=== PATIENT | male | born 1995 | race Two or more races ===

== ENCOUNTER 2016-05-03 15:37 | Emergency (ER) | payer OTHER ==
[~2016-05-03] VITALS: Ht 177.8 cm; Wt 65.8 kg
[2016-05-03 18:17] VITALS: BP 145/56
[2016-05-03] MEDS ORDERED: TETRACAINE 0.5% OPHTH SOLUTION 4ML BOTTLE. OS ONE (19:00)
[2016-05-03] MEDS ORDERED: OFLO5DRO OS (19:45)
--- NOTE | 2016-05-03 19:46 | PHYS DOC ---
Past Medical History Past Medical History: Cancer, Other Additional Past Medical Histor: testicular Past Surgical History: Cancer Surgery Additional Information: Nonsmoker Alcohol Use: None Drug Use: None Adult General Chief Complaint Chief Complaint: EYE PROBLEMS HPI HPI Patient is a 20 year old male who presents with left eye irritation after chemical exposure at work at 1530 today. Patient was using Sodraft clean assist #106 cream clean product when it splashed into his left eye. He reports dry eye with mildly blurred vision in the left eye. He denies any drainage from the eye. He contacted poison control and was told to rinse I go to the hospital. He irrigated the eye for approximately 10 minutes at work. He is supposed to wear corrective lenses but does not wear them. He sees a PCP at [facility]. Review of Systems Review of Systems Constitutional: Denies fever or chills. [] Eyes: Denies redness or drainage. Reports left eye pain with blurred vision. Integument: Denies rash or skin lesions. [] Neurologic: Denies headache, focal weakness or sensory changes. [] Current Medications Current Medications Current Medications Medications (Trade) Dose Ordered Sig/Patric Start Time Stop Time Status Last Admin Dose Admin Tetracaine HCl (Tetracaine) 1 drop 1X ONCE 05/03/16 19:00 05/03/16 19:01 DC 05/03/16 19:27 1 DROP Allergies Allergies Allergies Coded Allergies Type Severity Reaction Last Updated Verified No Known Drug Allergies 05/03/16 No Physical Exam Physical Exam Constitutional: Well developed, well nourished, no acute distress, non-toxic appearance. [] HENT: Normocephalic, atraumatic, bilateral external ears normal, oropharynx moist, no oral exudates, nose normal. [] Eyes: PERRLA, EOMI, conjunctiva normal, no discharge. [] Skin: Warm, dry, no erythema, no rash. [] Neurologic: Alert and oriented X 3, normal motor function, normal sensory function, no focal deficits noted. [] Psychologic: Affect normal, judgement normal, mood normal. [] Current Patient Data Vital Signs Vital Signs Date Time Temp Pulse Resp B/P Pulse Ox O2 Delivery O2 Flow Rate FiO2 05/03/16 18:17 98.6 58 16 100 Room Air 98.6 EKG EKG [] Radiology/Procedures Radiology/Procedures [] Course & Med Decision Making Course & Med Decision Making Pertinent Labs and Imaging studies reviewed. (See chart for details) Visual acuity OD 20/50, OS 20/40, OU 20/40 Left eye pH 7.0 Dragon Disclaimer Dragon Disclaimer This electronic medical record was generated, in whole or in part, using a voice recognition dictation system. Departure Departure Impression: Primary Impression: Chemical conjunctivitis of left eye Disposition: HOME, SELF-CARE Condition: STABLE Referrals: CANDIDO FRANCE MD Patient Instructions: Conjunctivitis, Chemical, [id number] Additional Instructions: You were seen for irritation of the eye caused by a chemical. Your eye is not ascitic due to the chemical exposure. Your vision is not severely decreased. Please use the prescribed eye drops as directed. Please follow-up with the eye doctor listed below if you have any change in vision, increased redness, swelling, or drainage from eye. Return to emergency department if you have any new or concerning symptoms. Scripts Ofloxacin (Ocuflox)5 Ml Drops1 Drop OS QID 7 Days Prov:KARLA DICKENS 05/03/16 KARLA DICKENS May 03, 2016 19:45
== END 2016-05-03 19:55 | disposition home or self-care (01) ==
LOC: ER 15:37
DX: T65.891A Toxic effect of other specified substances, accidental (unintentional), initial encounter (principal); H10.212 Acute toxic conjunctivitis, left eye; Y92.69 Other specified industrial and construction area as the place of occurrence of the external cause
CPT/HCPCS: 99283